=== PATIENT | female | born 1975 | race Caucasian/White ===

== ENCOUNTER 2017-06-02 13:10 | Day surgery (SDC) | payer OTHER ==
[2017-06-02] MEDS: NS 1,000 ML IV (13:42)
[2017-06-02] MEDS ORDERED: PROPOFOL 200 MG/20 ML VIAL As Ordered ×2 (13:58)
[2017-06-02] MEDS ORDERED: LIDOCAINE 2% INJ 100 MG/5 ML SYRINGE As Ordered (13:58)
== END 2017-06-02 14:54 | disposition home or self-care (01) ==
LOC: M OPP 13:10
DX: R19.4 Change in bowel habit (principal); K29.70 Gastritis, unspecified, without bleeding; R10.13 Epigastric pain; R14.0 Abdominal distension (gaseous); K44.9 Diaphragmatic hernia without obstruction or gangrene; K21.9 Gastro-esophageal reflux disease without esophagitis; R51 Headache; F41.9 Anxiety disorder, unspecified; Z79.82 Long term (current) use of aspirin; Z79.899 Other long term (current) drug therapy; Z88.5 Allergy status to narcotic agent; F17.210 Nicotine dependence, cigarettes, uncomplicated; Z86.73 Personal history of transient ischemic attack (TIA), and cerebral infarction without residual deficits; Z98.51 Tubal ligation status; Z80.3 Family history of malignant neoplasm of breast
CPT/HCPCS: 45378

== ENCOUNTER → 2017-07-25 | Outpatient (REF) | payer OTHER ==
[2017-07-25 17:03] LABS: ALBUMIN 4.2 GM/DL (3.2-5.2); ALBUMIN/GLOBULIN RATIO 1.45 (1.00-1.93); ALKALINE PHOSPHATASE 70 U/L (45-117); ALT/SGPT 14 U/L (12-78); ANION GAP 11 MEQ/L (8-16); AST/SGOT 10 U/L (7-37); BILIRUBIN,TOTAL 0.3 MG/DL (0.2-1.0); BLOOD UREA NITROGEN 17 MG/DL (7-18); CARBON DIOXIDE LEVEL 22 MEQ/L (21-32); CHLORIDE LEVEL 109 MEQ/L (98-107); CREATININE FOR GFR 0.83 MG/DL (0.55-1.30); GLOMERULAR FILTRATION RATE > 60.0 (>58); GLUCOSE, FASTING 91 MG/DL (70-100); POTASSIUM SERUM 3.8 MEQ/L (3.5-5.1); SODIUM LEVEL 142 MEQ/L (136-145); TOTAL PROTEIN 7.1 GM/DL (6.4-8.2)
[2017-07-25 18:15] LABS: BASO % 0.5 % (0.0-1.0); EOS # 0.1 10^3/uL (0.0-0.50); EOS % 1.6 % (0.0-3.0); HEMATOCRIT 40.1 % (36.0-47.0); HEMOGLOBIN 13.5 g/dl (12.0-16.0); IMMATURE GRANULOCYTE % 0.4 % (0-3.0); LYMPH % 26.9 % (24.0-44.0); MEAN CORPUSCULAR HEMOGLOBIN 29.9 pg (27.0-33.0); MEAN CORPUSCULAR HGB CONC 33.7 g/dl (32.0-36.5); MEAN CORPUSCULAR VOLUME 88.7 fl (80.0-96.0); MONO # 0.5 10^3/uL (0.0-0.8); NEUTROPHILS # 4.7 10^3/uL (1.8-7.7); NEUTROPHILS % 63.6 % (36.0-66.0); PLATELET COUNT, AUTOMATED 240 10^3/uL (150-450); RED BLOOD COUNT 4.52 10^6/uL (4.00-5.40); RED CELL DISTRIBUTION WIDTH 12.8 % (11.5-14.5); WHITE BLOOD COUNT 7.4 10^3/uL (4.0-10.0)
[2017-07-28 15:19] LABS: ZONISAMIDE LEVEL 10.2 ug/mL (10.0-40.0)
== END ==
LOC: M LABNEURO 15:30
DX: R51 Headache (principal); Z79.899 Other long term (current) drug therapy
CPT/HCPCS: 80053

== ENCOUNTER 2018-05-21 16:17 | Inpatient (IN) | payer OTHER ==
[~2018-05-21] VITALS: Ht 167.6 cm; Wt 63.4 kg
[~2018-05-21 16:17] MED LIST: ASPI81TAEC PO; ATOR1TAB21 PO; EFFE75CA2 PO; GLYC2TAB18 PO; RANI150T PO; VITA100067 PO; ZONI100C2; ZONI25CA2 PO
[2018-05-21 20:45] VITALS: BP 123/72
[2018-05-21] MEDS ORDERED: ZONI100C2 PO (21:03)
[2018-05-21] MEDS ORDERED: GLYC1TAB18 PO (21:03)
[2018-05-21] MEDS ORDERED: ZOFR8TAB22 PO (21:05)
[2018-05-21] MEDS ORDERED: PERC5TAB12 PO (21:05)
--- NOTE | 2018-05-21 21:18 | HPEPDOC ---
General Date of Admission May 21, 2018 at 20:31 Chief Complaint The patient is a 43-year-old female admitted with a reason for visit of choledocholithiasis. Source: Patient Exam Limitations: No limitations Severity: Moderate History of Present Illness This is a 43-year-old female with a pertinent past medical history of OCD and right temporal parietal hemorrhagic stroke in 2015 who is complaining of right upper quadrant pain. The patient was a direct admission from [facility] for an ERCP for choledocholithiasis. She states that she was previously seen at the [place] ER on 05/14 where she was found to have cholelithiasis with a dilated CBD of 8 mm was noted and elevated liver enzymes. She was then directly admitted from the [place] surgery clinic on 05/18/2017 with the diagnosis of cholecystitis. She was started on IV antibiotics. On the she had an MRCP done which showed common bile duct stones and stones in the ampulla she was then transferred to [facility] for ERCP. Pain description Duration: couple months worsened on New Year's Jada Associated symptoms: nausea + nonbloody bilious vomiting (6 episodes on New Year's Jada) + constipation Denies blood in stool or urine or diarrhea. Denies any skin breakdown or any abdominal lesions. Rates: 10 out of 10 which is now constant, localized and sharp in nature. Has used oxycodone to provide some pain relief but made her nauseous. Home Medications Scheduled Glycopyrrolate Base (Glycopyrrolate) 1 Mg Tab, 2 MG PO DAILY, (Reported) Zonisamide (Zonisamide) 100 Mg Cap, 300 MG PO QHS, (Reported) Scheduled PRN Ondansetron (Zofran Odt) 8 Mg Tab, 8 MG PO TID PRN for NAUSEA, (Reported) Oxycodone/Acetaminophen (Percocet 5-325 mg) 1 Tab Tab, 1 TAB PO Q4H PRN for PAIN, (Reported) Allergies Coded Allergies: Codeine (Verified Adverse Reaction, Intermediate, SEVERE N/V COULDN'T WALK DIZZY, 05/21/18) Past Medical History Medical History 1. Obsessive-compulsive disorder 2. Hx of right temporal parietal Hemorrhagic Stroke 02/2016 3. Surgical History 1. Tubal Ligation. Family History Mother - migraines () Family history of gallbladder removal in all females (unsure why) Social History * Smoker: current smoker (the last 30 years 1 pack a day) Alcohol: Denies Drugs: denies Review of Systems Constitutional: Denies: Chills, Fever Skin: Denies: Rash, Lesions, Jaundice, Breakdown Pulmonary: Denies: Dyspnea, Cough Cardiovascular: Denies: Chest Pain, Palpitations, Orthopnea, Paroxysmal Noc. Dyspnea, Lt Headedness Gastrointestinal: Reports: Nausea, Vomiting, Abdominal Pain (right upper quadrant pain), Constipation; Denies: Diarrhea Genitourinary: Denies: Dysuria, Frequency, Incontinence, Hematuria, Retention Hematologic: Denies: Bruising, Bleeding Excessively Musculoskeletal: Denies: Neck Pain, Back Pain, Joint Pain, Muscle Pain, Spasms Neurological: Denies: Weakness, Numbness, Change in speech, Confusion Psych: Reports: Mood Normal; Denies: Depression, Memory Issues Physical Examination General Exam: Positive: Alert, No Acute Distress Eye Exam: Negative: Sclera icteric ENT Exam: Positive: Atraumatic, Mucous membr. moist/pink, Pharynx Normal Neck Exam: Positive: Supple; Negative: JVD, thyromegaly Chest Exam: Positive: Clear to auscultation, Normal air movement Heart Exam: Positive: Rate Normal, Regular Rhythm, Normal S1, Normal S2; Negative: Murmurs, Rubs Telemetry: Positive: No significant arrhythmia Abdomen Exam: Positive: BS Hypoactive, Soft, Tenderness (right upper and middle quadrant.), Other (right upper and middle quadrant guarding. positive Marie signs.); Negative: Normal bowel sounds Extremity Exam: Positive: Normal pulses; Negative: Clubbing, Cyanosis, Edema Skin Exam: Positive: Nl turgor and temperature; Negative: Breakdown, Lesion Neuro Exam: Positive: Normal Speech Psych Exam: Positive: Mental status NL, Mood NL, Oriented x 3 Vital Signs Vital Sign - Last 24 Hours 05/21/18 20:45 Temp 98.1 Pulse 56 Resp 18 B/P (MAP) 123/72 (89) Pulse Ox 97 O2 Delivery Room Air Assessment/Plan 43-year-old female with a pertinent past medical history of OCD, partial hemorrhagic stroke in 2016 who was a direct admission from [facility] for choledocholithiasis. The patient me management the following problems: 1. Right upper quadrant pain secondary to choledocholithiasis. -hysical exam today positive for Mercy signs negative for jaundice -Labs: Otology and chemistries were unremarkable. Total bilirubin was 0.1, liver enzymes up-trended AST-42 and ALT-76. Lipase was within normal limits : 14 -Imaging: Chest x-ray was negative for any acute processes. 05/14/18 U/S gallbladder was positive for cholelithiasis with common duct dilatation of 8 mm. 05/18/17 CT scan of the abdomen showed mild gallbladder wall thickening and pericholecystic fluids. -All labs imaging an EKG done cartilage can be found in chart -Diet nothing by mouth. -IV fluids 75 MLS per hour. -Pain management Tylenol, Percocet, morphine -Dr. Omalley/GI was consulted - will need to call to confirm when ERCP is scheduled , possibly Monday the . -once stable after 6 weeks should consider possible cholecystectomy outpatient. 2. History of hemorrhagic stroke. Will continue with her outpatient zonisamide. 3. History of OCD - currently not on any SSRIs or SNRI. Stable 4. DVT prophylaxis - heparin every 6 hours 5.Diet: Nothing by mouth Disposition the patient will be admitted to Dr. Jean service transition of care will occur 05/22/2018 at 7 AM. Plan / VTE VTE Prophylaxis Ordered?: Yes GME ATTESTATION GME ATTESTATION My faculty preceptor for this patient encounter was physically present during the encounter and was fully available. All aspects of the patient interview, examination, medical decision making process, and medical care plan development were reviewed and approved by the faculty preceptor. The faculty preceptor is aware and concurs with the plan as stated in the body of this note and will attest to such by his/her cosignature. JAYE MEZA DO May 21, 2018 21:18
[2018-05-21] MEDS ORDERED: ACETAMINOPHEN TAB 650MG DOSE (2X325MG) PO PRN (23:15)
[2018-05-21] MEDS ORDERED: ONDANSETRON 4MG/2ML VIAL (J2405) IV PRN (23:15)
[2018-05-21] MEDS ORDERED: PERCOCET 5MG/325MG TAB PO PRN (23:15)
[2018-05-21] MEDS ORDERED: BISACODYL 5 MG TAB PO PRN (23:15)
[2018-05-21] MEDS: NS 1,000 ML IV SCH (23:54)
[2018-05-21] MEDS: MORPHINE 4 MG/ML 1ML VIAL/SYRINGE (J2270) IV PRN (23:54)
[2018-05-21] MEDS: ZONISAMIDE 100 MG CAP (ZONEGRAN) PO SCH (23:54)
[2018-05-22 00:09] LABS: HEMATOCRIT 35.3 % (36.0-47.0); HEMOGLOBIN 11.8 g/dl (12.0-15.5); MEAN CORPUSCULAR HEMOGLOBIN 30.8 pg (27.0-33.0); MEAN CORPUSCULAR HGB CONC 33.4 g/dl (32.0-36.5); MEAN CORPUSCULAR VOLUME 92.2 fl (80.0-96.0); PLATELET COUNT, AUTOMATED 200 10^3/uL (150-450); RED BLOOD COUNT 3.83 10^6/uL (4.00-5.40); WHITE BLOOD COUNT 5.2 10^3/uL (4.0-10.0)
[2018-05-22 00:13] LABS: INR 1.1; PROTHROMBIN TIME 14.3 SECONDS (12.1-14.4)
[2018-05-22 00:36] LABS: ALBUMIN 3.4 GM/DL (3.2-5.2); ALT/SGPT 62 U/L (12-78); BILIRUBIN,TOTAL 0.2 MG/DL (0.2-1.0); BLOOD UREA NITROGEN 12 MG/DL (7-18); CALCIUM LEVEL 8.4 MG/DL (8.5-10.1); CARBON DIOXIDE LEVEL 20 MEQ/L (21-32); CHLORIDE LEVEL 110 MEQ/L (98-107); CHOLESTEROL LEVEL 188 MG/DL (<200); CHOLESTEROL RISK RATIO 4.585 (<5); CREATININE FOR GFR 0.73 MG/DL (0.55-1.30); GLOMERULAR FILTRATION RATE > 60.0 (>58); GLUCOSE, FASTING 87 MG/DL (70-100); HDL CHOLESTEROL 41 MG/DL (>40); LDL CHOLESTEROL 131 MG/DL (<100); NON-HDL-C 147 MG/DL; POTASSIUM SERUM 3.7 MEQ/L (3.5-5.1); SODIUM LEVEL 141 MEQ/L (136-145); TOTAL PROTEIN 5.8 GM/DL (6.4-8.2); TRIGLYCERIDES LEVEL 82 MG/DL (<150)
[2018-05-22] MEDS: HEPARIN SOD (PORCINE) 5000 UNITS/ML VIAL SC SCH ×3 (05:42→21:33)
[2018-05-22 06:00] VITALS: BP 100/59
[2018-05-22 07:08] LABS: HEMATOCRIT 35.4 % (36.0-47.0); HEMOGLOBIN 11.9 g/dl (12.0-15.5); MEAN CORPUSCULAR HEMOGLOBIN 31.1 pg (27.0-33.0); MEAN CORPUSCULAR HGB CONC 33.6 g/dl (32.0-36.5); MEAN CORPUSCULAR VOLUME 92.4 fl (80.0-96.0); PLATELET COUNT, AUTOMATED 193 10^3/uL (150-450); RED BLOOD COUNT 3.83 10^6/uL (4.00-5.40); WHITE BLOOD COUNT 4.3 10^3/uL (4.0-10.0)
[2018-05-22 07:40] LABS: ALBUMIN 3.3 GM/DL (3.2-5.2); ALT/SGPT 56 U/L (12-78); BILIRUBIN,TOTAL 0.2 MG/DL (0.2-1.0); BLOOD UREA NITROGEN 13 MG/DL (7-18); CALCIUM LEVEL 8.6 MG/DL (8.5-10.1); CARBON DIOXIDE LEVEL 22 MEQ/L (21-32); CHLORIDE LEVEL 110 MEQ/L (98-107); CREATININE FOR GFR 0.68 MG/DL (0.55-1.30); GLOMERULAR FILTRATION RATE > 60.0 (>58); GLUCOSE, FASTING 84 MG/DL (70-100); POTASSIUM SERUM 3.8 MEQ/L (3.5-5.1); SODIUM LEVEL 139 MEQ/L (136-145); TOTAL PROTEIN 5.9 GM/DL (6.4-8.2)
--- NOTE | 2018-05-22 07:50 | IPNPDOC ---
Date Seen The patient was seen on 05/22/18. Progress Note SUBJECTIVE: Denies: Chills, Fever Denies: Rash, Lesions, Jaundice, Breakdown Denies: Dyspnea, Cough Denies: Chest Pain, Palpitations, Orthopnea, Paroxysmal Noc. Dyspnea, Lt Headedness Reports: Nausea, Vomiting, colicky Abdominal Pain (right upper quadrant pain) across abd and to back between shoulder blades, Constipation; Denies: DiarrheaDenies: Dysuria, Frequency, Incontinence, Hematuria, Retention Denies: Bruising, Bleeding Excessively Denies: Neck Pain, Back Pain, Joint Pain, MusclePain, SpasmsDenies: Weakness, Numbness, Change in speech, Confusion Reports: Mood Normal; Denies: Depression, Memory Issues OBJECTIVE: VITALS: PLS SEE BELOW General Exam: Positive: Alert, No Acute Distress Eye Exam: Negative: Sclera icteric ENT Exam: Positive: Atraumatic, Mucous membr. moist/pink, Pharynx Normal Neck Exam: Positive: Supple; Negative: JVD, thyromegaly Chest Exam: Positive: Clear to auscultation, Normal air movement Heart Exam: Positive: Rate Normal, Regular Rhythm, Normal S1, Normal S2; Negative: Murmurs, Rubs Telemetry: Positive: No significant arrhythmia Abdomen Exam: Positive: BS Hypoactive, Soft, Tenderness (right upper and middle quadrant.), Other (right upper and middle quadrant guarding. positive Marie signs.); Negative: Normal bowel sounds Extremity Exam: Positive: Normal pulses; Negative: Clubbing, Cyanosis, Edema Skin Exam: Positive: Nl turgor and temperature; Negative: Breakdown, Lesion Neuro Exam: Positive: Normal Speech Psych Exam: Positive: Mental status NL, Mood NL, Oriented x 3 LABORATORY DATA, IMAGING STUDIES: PLS SEE BELOW ASSESSMENT AND PLAN: This is a 43-year-old female with a pertinent past medical history of OCD and right temporal parietal hemorrhagic stroke in 2016 who is complaining of right upper quadrant pain. The patient was a direct admission from [facility] for an ERCP for choledocholithiasis. She states that she was previously seen at the [place] ER on 05/14 where she was found to have cholelithiasis with a dilated CBD of 8 mm was noted and elevated liver enzymes. She was then directly admitted from the [place] surgery clinic on 05/18/2017 with the diagnosis of cholecystitis. She was started on IV antibiotics. On the seventh she had an MRCP done which showed common bile duct stones and stones in the ampulla she was then transferred to [facility] for ERCP. 1. Right upper quadrant pain secondary to choledocholithiasis. -physical exam today positive for Mercy signs negative for jaundice -Labs: chemistries were unremarkable. Total bilirubin was 0.1, liver enzymes up -trended AST-42 and ALT-76. Lipase was within normal limits : 14 -Imaging: Chest x-ray was negative for any acute processes. 05/14/18 U/S gallbladder was positive for cholelithiasis with common duct dilatation of 8 mm. 05/18/17 CT scan of the abdomen showed mild gallbladder wall thickening and pericholecystic fluids. -All labs imaging an EKG done cartilage can be found in chart -Diet nothing by mouth. -IV fluids 75 MLS per hour. -Pain management Tylenol, Percocet, morphine -Dr. Omalley/GI was consulted - will need to call to confirm when ERCP is scheduled , possibly Monday the . -once stable after 6 weeks should consider possible cholecystectomy outpatient. 2. History of hemorrhagic stroke. Will continue with her outpatient zonisamide. 3. History of OCD - currently not on any SSRIs or SNRI. Stable 4. DVT prophylaxis - heparin every 6 hours 5.Diet: Nothing by mouth VS, I&O, 24H, Fishbone Vital Signs/I&O Vital Signs Date Time Temp Pulse Resp B/P (MAP) Pulse Ox O2 Delivery O2 Flow Rate FiO2 05/22/18 06:00 98.8 59 18 100/59 (73) 98 Room Air I&O- Last 24 Hours up to 6 AM 05/22/18 06:00 Intake Total 90 ml Output Total 350 ml Balance -260 ml Laboratory Data 24H LABS Laboratory Tests 2 05/21/18 23:45: Nucleated Red Blood Cells % (auto) 0.0, Prothrombin Time 14.3, Prothromb Time International Ratio 1.10, Anion Gap 11, Glomerular Filtration Rate > 60.0, Blood Urea Nitrogen 12, Creatinine 0.73, Sodium Level 141, Potassium Level 3.7, Chloride Level 110H, Carbon Dioxide Level 20L, Calcium Level 8.4L, Aspartate Amino Transf (AST/SGOT) 17, Alanine Aminotransferase (ALT/SGPT) 62, Alkaline Phosphatase 179H, Total Bilirubin 0.2, Triglycerides Level 82, LDL Cholesterol 131H, Total Protein 5.8L, Albumin 3.4, Albumin/Globulin Ratio 1.42, Total Cholesterol 188, Non-HDL Cholesterol (LDL + VLDL) 147, Total HDL Cholesterol 41, Cholesterol/HDL Ratio 4.585 CBC/BMP Laboratory Tests 05/21/18 23:45 Red Blood Count 3.83 L, Mean Corpuscular Volume 92.2, Mean Corpuscular Hemoglobin 30.8, Mean Corpuscular Hemoglobin Concent 33.4, Red Cell Distribution Width 12.5, Calcium Level 8.4 L, Aspartate Amino Transf (AST/SGOT) 17, Alanine Aminotransferase (ALT/SGPT) 62, Alkaline Phosphatase 179 H, Total Bilirubin 0.2, Triglycerides Level 82, LDL Cholesterol 131 H, Total Protein 5.8 L, Albumin 3.4 THOMAS CARRINGTON MD May 22, 2018 07:01
[2018-05-22] MEDS: NORCO, ANEXSIA 5/325MG TABLET (HYDROcodone/ACETAMINOPHEN) PO PRN ×3 (09:00→19:57)
[2018-05-22 10:44] LABS: LIPASE 114 U/L (73-393)
[2018-05-22] MEDS: NS 1,000 ML IV SCH (12:27)
--- NOTE | 2018-05-22 13:25 | REP ---
MRCP exam: Without contrast: History: Choledocholithiasis. No comparison imaging available. Technique: Axial and coronal T2-weighted scans are acquired. In addition, MRCP acquisition is acquired and maximal intensity projection images are generated and displayed rotational. Findings: There are multiple large faceted gallstones filling much of the lumen of the gallbladder. These range in size up to 1.6 cm. No small gallstones are seen in the gallbladder. There is no evidence of intrahepatic biliary ductal dilation. Pancreatic duct is borderline. The common bile duct measures 1.1 cm in greatest diameter. There is no MRCP evidence of choledocholithiasis. No mass lesion is apparent. The study is otherwise unremarkable. Impression: Multiple large gallstones in the gallbladder. Mildly dilated common bile duct, 1.1 cm. No MRCP evidence of choledocholithiasis. Electronically Signed by Jose Lee MD 05/22/2018 01:51 P
[2018-05-22 15:30] VITALS: BP 127/68
[2018-05-22] MEDS: ZONISAMIDE 100 MG CAP (ZONEGRAN) PO SCH (19:57)
[2018-05-22] MEDS: MORPHINE 4 MG/ML 1ML VIAL/SYRINGE (J2270) IV PRN (21:38)
[2018-05-22 22:00] VITALS: BP 136/67
[2018-05-23] MEDS: NS 1,000 ML IV SCH (03:01)
[2018-05-23 06:00] VITALS: BP 112/67
[2018-05-23] MEDS: HEPARIN SOD (PORCINE) 5000 UNITS/ML VIAL SC SCH (06:09)
[2018-05-23] MEDS: NORCO, ANEXSIA 5/325MG TABLET (HYDROcodone/ACETAMINOPHEN) PO PRN (06:16)
[2018-05-23] MEDS ORDERED: MORP4INJ5 IV (06:42)
[2018-05-23] MEDS ORDERED: ONDA4VLL IV (06:42)
[2018-05-23 06:50] LABS: HEMATOCRIT 34.6 % (36.0-47.0); HEMOGLOBIN 11.7 g/dl (12.0-15.5); MEAN CORPUSCULAR HGB CONC 33.8 g/dl (32.0-36.5); MEAN CORPUSCULAR VOLUME 91.8 fl (80.0-96.0); PLATELET COUNT, AUTOMATED 199 10^3/uL (150-450); RED BLOOD COUNT 3.77 10^6/uL (4.00-5.40); WHITE BLOOD COUNT 3.9 10^3/uL (4.0-10.0)
[2018-05-23 07:20] LABS: ALBUMIN 3.3 GM/DL (3.2-5.2); ALT/SGPT 43 U/L (12-78); BILIRUBIN,TOTAL 0.2 MG/DL (0.2-1.0); BLOOD UREA NITROGEN 14 MG/DL (7-18); CALCIUM LEVEL 8.4 MG/DL (8.5-10.1); CARBON DIOXIDE LEVEL 21 MEQ/L (21-32); CHLORIDE LEVEL 110 MEQ/L (98-107); GLOMERULAR FILTRATION RATE > 60.0 (>58); GLUCOSE, FASTING 87 MG/DL (70-100); POTASSIUM SERUM 3.8 MEQ/L (3.5-5.1); SODIUM LEVEL 140 MEQ/L (136-145); TOTAL PROTEIN 5.8 GM/DL (6.4-8.2)
[2018-05-23] MEDS: MORPHINE 4 MG/ML 1ML VIAL/SYRINGE (J2270) IV PRN (07:37)
--- NOTE | 2018-05-23 12:39 | DS.PDOC ---
Discharge Summary General Date of Admission May 21, 2018 at 20:31 Date of Discharge 05/23/18 LEFT AGAINST MEDICAL ADVICE DUE TO INSURANCE NOT PAYING FOR AMBULANCE. PATIENT REFUSING TO PAY FOR AMBULANCE FOR TRANSFER TO [facility] FOR CHOLECYSTECTOMY. PATIENT REFUSING GENERAL SURGICAL SERVICES AT [facility]. Discharge Summary CONSULTANTS: GI-DR ROMA OMALLEY IMAGING STUDIES: 05/22/18 repeat MRCP no choledocholithiasis . multiple gallstones. DISCHARGE DIAGNOSES: Choledocholithiasis Biliary colic History of right temporal parietal hemorrhagic stroke in 2016 OCD HISTORY OF PRESENT ILLNESS: This is a 43-year-old female with a pertinent past medical history of OCD and right temporal parietal hemorrhagic stroke in 2016 who is complaining of right upper quadrant pain. The patient was a direct admission from [facility] for an ERCP for choledocholithiasis. She states that she was previously seen at the [place] ER on 05/14 where she was found to have cholelit hiasis with a dilated CBD of 8 mm was noted and elevated liver enzymes. She was then directly admitted from the [place] surgery clinic on 05/18/2017 with the diagnosis of cholecystitis. She was started on IV antibiotics. On the seventh she had an MRCP done which showed common bile duct stones and stones in the ampulla she was then transferred to [facility] for ERCP. HOSPITAL COURSE: Patient was admitted for biliary colic and choledocholithiasis. -physical exam on admission was positive for Marie's sign, but negative for jaundice -Labs: chemistries were unremarkable. Total bilirubin was 0.1, liver enzymes up-trended AST-42 and ALT-76. Lipase was within normal limits : 14 -Imaging: Chest x-ray was negative for any acute processes. 05/14/18 U/S gallbladder was positive for cholelithiasis with common duct dilatation of 8 mm. 05/18/17 CT scan of the abdomen showed mild gallbladder wall thickening and pericholecystic fluids. -All labs imaging an EKG done cartilage can be found in chart -Diet nothing by mouth. -s/pIV fluids 75 MLS per hour. -Pain management Tylenol, Percocet, morphine -Dr. Omalley/GI was consulted -recommended repeating MRCP since pt had normal bili and afebrile with no white count. -repeat MRCP on 05/22/18: no choledocholithiasis. GI recommended surgical consult for lap erica. pt refused [facility] surgical services, and opted to return to [facility] Dr. Aragon accepted , but pt refused to pay ambulance due to insurance denial. Pt signed out AMA despite risk of infection, obstructive jaundice, sepsis, and . History of hemorrhagic stroke. Will continue with her outpatient zonisamide. History of OCD - currently not on any SSRIs or SNRI. Stable DVT prophylaxis - heparin every 6 hours Diet: Nothing by mouth DISCHARGE MEDICATIONS: Please see below. ALLERGIES: Please see below. PHYSICAL EXAMINATION ON DISCHARGE: VITAL SIGNS: Please see below. General Exam: Positive: Alert, No Acute Distress Eye Exam: Negative: Sclera icteric ENT Exam: Positive: Atraumatic, Mucous membr. moist/pink, Pharynx Normal Neck Exam: Positive: Supple; Negative: JVD, thyromegaly Chest Exam: Positive: Clear to auscultation, Normal air movement Heart Exam: Positive: Rate Normal, Regular Rhythm, Normal S1, Normal S2; Negative: Murmurs, Rubs Telemetry: Positive: No significant arrhythmia Abdomen Exam: Positive: BS Hypoactive, Soft, Tenderness (right upper and middle quadrant.), Other (right upper and middle quadrant guarding. positive Marie signs.); Negative: Normal bowel sounds Extremity Exam: Positive: Normal pulses; Negative: Clubbing, Cyanosis, Edema Skin Exam: Positive: Nl turgor and temperature; Negative: Breakdown, Lesion Neuro Exam: Positive: Normal Speech Psych Exam: Positive: Mental status NL, Mood NL, Oriented x 3 LABORATORY DATA: Please see below. IMAGING STUDIES: MRCP 05/22/18 MRCP exam: Without contrast: History: Choledocholithiasis. No comparison imaging available. Technique: Axial and coronal T2-weighted scans are acquired. In addition, MRCP acquisition is acquired and maximal intensity projection images are generated and displayed rotational. Findings: There are multiple large faceted gallstones filling much of the lumen of the gallbladder. These range in size up to 1.6 cm. No small gallstones are seen in the gallbladder. There is no evidence of intrahepatic biliary ductal dilation. Pancreatic duct is borderline. The common bile duct measures 1.1 cm in greatest diameter. There is no MRCP evidence of choledocholithiasis. No mass lesion is apparent. The study is otherwise unremarkable. Impression: Multiple large gallstones in the gallbladder. Mildly dilated common bile duct, 1.1 cm. No MRCP evidence of choledocholithiasis. DISCHARGE INSTRUCTIONS: Immediate follow up with Dr. Aragon at [facility] ITEMS TO FOLLOWUP ON ON OUTPATIENT: NISHI ARAGON AT [facility] DISCHARGE CONDITION: guarded/ LEFT AGAINST MEDICAL ADVICE DUE TO FINANCIAL/INSURANCE ISSUES. TIME SPENT ON DISCHARGE: 30 minutes. Vital Signs/I&Os Vital Signs Date Time Temp Pulse Resp B/P (MAP) Pulse Ox O2 Delivery O2 Flow Rate FiO2 05/23/18 07:47 20 05/23/18 06:00 97.9 55 112/67 (82) 98 Room Air I&O- Last 24 Hours up to 6 AM 05/23/18 05:59 Intake Total 825 ml Output Total 200 ml Balance 625 ml Laboratory Data Labs 24H Laboratory Tests 2 05/23/18 06:35: Nucleated Red Blood Cells % (auto) 0.0, Anion Gap 9, Glomerular Filtration Rate > 60.0, Blood Urea Nitrogen 14, Creatinine 0.70, Sodium Level 140, Potassium Level 3.8, Chloride Level 110H, Carbon Dioxide Level 21, Calcium Level 8.4L, Aspartate Amino Transf (AST/SGOT) 14, Alanine Aminotransferase (ALT/SGPT) 43, Alkaline Phosphatase 151H, Total Bilirubin 0.2, Total Protein 5.8L, Albumin 3.3, Albumin/Globulin Ratio 1.32 CBC/BMP Laboratory Tests 05/23/18 06:35 Red Blood Count 3.77 L, Mean Corpuscular Volume 91.8, Mean Corpuscular Hemoglobin 31.0, Mean Corpuscular Hemoglobin Concent 33.8, Red Cell Distribution Width 12.5, Calcium Level 8.4 L, Aspartate Amino Transf (AST/SGOT) 14, Alanine Aminotransferase (ALT/SGPT) 43, Alkaline Phosphatase 151 H, Total Bilirubin 0.2, Total Protein 5.8 L, Albumin 3.3 Discharge Medications Scheduled Zonisamide (Zonisamide) 100 Mg Cap, 300 MG PO QHS, (Reported) Scheduled PRN Morphine Sulfate (Morphine Sulfate INJ) 4 Mg/Ml Inj, 2 MG IV Q2HP PRN for SEVERE PAIN (PS 8-10) Ondansetron (Ondansetron HCl) 4 Mg/2 Ml Inj, 4 MG IV Q6HP PRN for NAUSEA OR VOMITING Allergies Coded Allergies: Codeine (Verified Adverse Reaction, Intermediate, SEVERE N/V COULDN'T WALK DIZZY, 05/21/18) THOMAS CARRINGTON MD May 23, 2018 12:05
--- NOTE | 2018-05-23 20:59 | CR ---
DATE OF CONSULTATION: 05/22/2018 This is a 43-year white female who was again transferred down from [facility] for a possibility of choledocholithiasis. The patient apparently had a right temporoparietal hemorrhagic stroke in 2015, began complaining of right upper quadrant pain. She was transferred from [facility] for a possibility of choledocholithiasis. She was found to have cholelithiasis with apparent dilated common bile duct and possible stone at the distal duct based on magnetic resonance cholangiopancreatography (MRCP). She was admitted for possible endoscopic retrograde cholangiopancreatography (ERCP) and further evaluation. The patient describes having increasing symptoms of pain since New Years. She has some nausea, occasional vomiting. She had apparently six episodes on New Years. She has no melena or hematochezia or bright red blood per rectum. The patient has a fairly constant pain of 10/. ALLERGIES: To CODEINE. PAST MEDICAL HISTORY: 1. Obsessive-compulsive disorder. 2. History of right temporoparietal hemorrhagic stroke in 02/2016. PAST SURGICAL HISTORY: Status post tubal ligation. FAMILY HISTORY: Family history is noncontributory. SOCIAL HISTORY: Cigarettes. The patient smokes 1 pack a day for the last 30 years. Alcohol occasionally. REVIEW OF SYSTEMS: A 12-point review of systems is noncontributory to the above problems. PHYSICAL EXAMINATION: GENERAL: This is a well-developed, well-nourished white female in no obvious acute distress. Appears stated age. CHEST: Chest was clear to auscultation. CARDIOVASCULAR: Cardiovascular exam showed a regular rhythm. ABDOMEN: Soft, mild right upper quadrant tenderness. No hepatosplenomegaly. Bowel sounds positive. LABORATORY STUDIES: Laboratory studies on admission shows a white count of 5200, hemoglobin and hematocrit (H and H) 11.8 and 35.3. The patient's white count on 05/22/2018 showed 4300, H and H 11.9 and 35.4. The patient's chemistry twice on 05/21/2018 and 05/22/2018 showed a total bilirubin of 0.2. AST was 17, ALT was 62 on the 05/21/2018 and then 15 and 56 on 05/22/2018. The patient's alkaline phosphatase was 179 on admission and now it is 160. The patient's lipase was 114. We ordered a repeat imaging of the abdomen on 05/22/2018. Repeated the MRCP which was read by Dr. Lee. The report showed multiple large faceted gallstones filling much of the lumen of the gallbladder 1.6 cm in size. No small gallstones were seen in the gallbladder. There is no evidence of intrahepatic biliary dilatation. The common bile duct was measured at 1.1 cm in various diameter. There was no MRCP evidence of choledocholithiasis. No mass lesions seen. ANALYSIS: Abdominal pain secondary to gallstones. At the present time we have no liver function elevations or imaging studies here to suggest there is choledocholithiasis to proceed with possible endoscopic retrograde cholangiopancreatography (ERCP). Our plan will be to transfer the patient back [facility] for a possibility of a laparoscopic cholecystectomy and if anything changes in the interim endoscopic retrograde cholangiopancreatography (ERCP) certainly could be considered in the future but at this point we have no laboratory studies or imaging studies to suggest that she has a common bile duct stone at this time.
== END 2018-05-23 09:10 | disposition left against medical advice (07) | DRG 446 ==
LOC: M MS4PR 20:31
PROVIDERS: ADMIT Internal Medicine; ATTEND General Practice
DX: K80.00 Calculus of gallbladder with acute cholecystitis without obstruction (principal); F42.9 Obsessive-compulsive disorder, unspecified; F17.200 Nicotine dependence, unspecified, uncomplicated; Z86.73 Personal history of transient ischemic attack (TIA), and cerebral infarction without residual deficits; Z79.899 Other long term (current) drug therapy; Z88.5 Allergy status to narcotic agent

== ENCOUNTER → 2018-09-03 | Outpatient (CLI) | payer OTHER ==
[~2018-09-03] MED LIST changes: +GLYC1TAB18 PO; +MORP4INJ5 IV; +ONDA4VLL IV; +PERC5TAB12 PO; +ZOFR8TAB22 PO; +ZONI100C2 PO
--- NOTE | 2018-09-03 18:52 | REPMRS ---
Patient History The patient states she had a clinical breast exam in September 2017.Family history of breast cancer at age 50 in maternal aunt, breast cancer at age 50 in maternal aunt, breast cancer at age 50 in paternal aunt, colorectal cancer in maternal grandfather, pancreatic cancer in paternal grandfather, endometrial cancer in maternal aunt, prostate cancer in maternal grandfather. Digital Mammo Screening Bilat: September 03, 2018 - Exam #: [id number] Bilateral CC and MLO view(s) were taken. Technologist: Rubia Correia, Technologist Prior study comparison: July 16, 2015, bilateral digital mammo screening bilat, performed at [facility]. FINDINGS: The breast tissue is extremely dense which could obscure a lesion on mammography. There is no evidence of cancer on this mammogram. Assessment: BI-RADS/ACR category 2 mammogram. Benign Findings. Recommendation Routine screening mammogram of both breasts in 1 year (for women over age 40). This mammogram was interpreted with the aid of an FDA-approved computer-aided dectection system. Electronically Signed By: Ben Gallego MD 09/03/18 [id number]
== END ==
LOC: M RAD 15:45
PROVIDERS: ATTEND Internal Medicine
DX: Z12.31 Encounter for screening mammogram for malignant neoplasm of breast (principal)

== ENCOUNTER → 2018-09-25 | Outpatient (REF) | payer OTHER ==
[2018-09-25 18:07] LABS: BASO # 0.1 10^3/uL (0.0-0.2); BASO % 0.6 % (0.0-1.0); EOS # 0.1 10^3/uL (0.0-0.50); EOS % 0.8 % (0.0-3.0); HEMATOCRIT 42.4 % (36.0-47.0); HEMOGLOBIN 13.7 g/dl (12.0-15.5); LYMPH # 1.3 10^3/uL (1.5-4.5); LYMPH % 16.6 % (24.0-44.0); MEAN CORPUSCULAR HGB CONC 32.3 g/dl (32.0-36.5); MEAN CORPUSCULAR VOLUME 89.6 fl (80.0-96.0); MONO # 0.5 10^3/uL (0.0-0.8); MONO % 6.5 % (0.0-5.0); NEUTROPHILS # 5.8 10^3/uL (1.8-7.7); NEUTROPHILS % 75.2 % (36.0-66.0); PLATELET COUNT, AUTOMATED 243 10^3/uL (150-450); RED BLOOD COUNT 4.73 10^6/uL (4.00-5.40); WHITE BLOOD COUNT 7.7 10^3/uL (4.0-10.0)
[2018-09-25 18:14] LABS: ALBUMIN 4.1 GM/DL (3.2-5.2); ALT/SGPT 99 U/L (12-78); BILIRUBIN,TOTAL 0.3 MG/DL (0.2-1.0); BLOOD UREA NITROGEN 18 MG/DL (7-18); CALCIUM LEVEL 8.8 MG/DL (8.5-10.1); CARBON DIOXIDE LEVEL 23 MEQ/L (21-32); CHLORIDE LEVEL 109 MEQ/L (98-107); CREATININE FOR GFR 0.81 MG/DL (0.55-1.30); FOLATE 1.7 NG/ML; GLOMERULAR FILTRATION RATE > 60.0 (>58); GLUCOSE, FASTING 103 MG/DL (70-100); POTASSIUM SERUM 4.4 MEQ/L (3.5-5.1); RHEUMATOID FACTOR QUANT < 10.0 IU/ML (<15.0); SODIUM LEVEL 138 MEQ/L (136-145); TOTAL 25(OH) VITAMIN D 15.5 NG/ML (30.0-100.0); TOTAL PROTEIN 6.8 GM/DL (6.4-8.2); VITAMIN B12 LEVEL 784 PG/ML
[2018-09-25 18:42] LABS: HEMOGLOBIN A1c 5.6 %
[2018-09-25 20:23] LABS: ERYTHROCYTE SEDIMENTATION RATE 4 mm/hr (0-20)
[2018-10-01 00:06] LABS: ANTINUCLEAR ANTIBODIES DIRECT Negative (Negative); VITAMIN B1 LEVEL WHOLE BLOOD 100.3 nmol/L (66.5-200.0); VITAMIN E(ALPHA TOCOPHEROL) 10.8 mg/L (7.0-25.1); VITAMIN E(GAMMA TOCOPHEROL) 1.6 mg/L (0.5-5.5)
== END ==
LOC: M LABNEURO 12:09
PROVIDERS: ATTEND Psychiatry & Neurology Neurology
DX: G31.9 Degenerative disease of nervous system, unspecified (principal)

== ENCOUNTER → 2019-06-10 | Outpatient (CLI) | payer OTHER ==
[~2019-06-10] MED LIST changes: +ASPI81TA85 PO; +OMEP-218 PO; +ZONI100C17; +ZONI100C17 PO; -ZONI100C2; -ZONI100C2 PO; +ZONI25CA13 PO; -ZONI25CA2 PO
--- NOTE | 2019-06-13 00:51 | ECGEPIP ---
[facility] Test Date: 2019-06-10 Pat Name: JALYN JIMENEZ Department: Room: - Gender: Female Rn Radiation Oncology: ANGELA : 1975 Requested By: Tee Herr Order Number: [id number] Reading MD: Rishabh Robbins Measurements Intervals Thelma Rate: 58 P: 54 RI: 140 QRS: 34 QRSD: 89 T: 45 QT: 415 QTc: 411 Interpretive Statements SINUS BRADYCARDIA Poor R wave progression vs prior anterior wall infarct Compared to prior tracing in the system, no remarkable changes Electronically Signed on 06-13-2019 0:50:50 EST by Rishabh Robbins
== END ==
LOC: M EKG 12:51
PROVIDERS: ATTEND Anesthesiology
DX: Z01.818 Encounter for other preprocedural examination (principal)

== ENCOUNTER 2019-06-12 07:40 | Day surgery (SDC) | payer OTHER ==
[~2019-06-12] VITALS: Ht 167.6 cm; Wt 65.3 kg
[~2019-06-12 07:40] MED LIST changes: +ACETAMINOPHEN 650 MG SUPP PR ONE; +LR 1,000 ML IV ONE
[2019-06-12 08:11] LABS: HEMATOCRIT 45.9 % (36.0-47.0); HEMOGLOBIN 14.7 g/dl (12.0-15.5); MEAN CORPUSCULAR HEMOGLOBIN 28.4 pg (27.0-33.0); MEAN CORPUSCULAR VOLUME 88.8 fl (80.0-96.0); PLATELET COUNT, AUTOMATED 237 10^3/uL (150-450); RED BLOOD COUNT 5.17 10^6/uL (4.00-5.40); WHITE BLOOD COUNT 7.1 10^3/uL (4.0-10.0)
[2019-06-12] MEDS ORDERED: ROCURONIUM BROMIDE 50 MG/5 ML VIAL As Ordered ONE (08:22)
[2019-06-12] MEDS ORDERED: MIDAZOLAM INJ 2 MG/2 ML VIAL (J2250) As Ordered ONE (08:22)
[2019-06-12] MEDS ORDERED: fentaNYL 100 MCG/2 ML INJECTION (J3010) As Ordered ONE ×2 (08:22→10:14)
[2019-06-12] MEDS ORDERED: dexameTHASONE 4 MG/ML 1ML VIAL (J1100) As Ordered ONE (08:22)
[2019-06-12] MEDS ORDERED: LIDOCAINE 2% INJ 100 MG/5 ML SDV (FOR ANES.) As Ordered ONE (08:22)
[2019-06-12] MEDS ORDERED: ONDANSETRON 4MG/2ML VIAL (J2405) As Ordered ONE (08:22)
[2019-06-12] MEDS ORDERED: propofoL 200 MG/20 ML VIAL As Ordered ONE (08:23)
[2019-06-12 08:28] LABS: BLOOD UREA NITROGEN 19 MG/DL (7-18); CALCIUM LEVEL 9.1 MG/DL (8.5-10.1); CARBON DIOXIDE LEVEL 24 MEQ/L (21-32); CHLORIDE LEVEL 110 MEQ/L (98-107); CREATININE FOR GFR 0.92 MG/DL (0.55-1.30); GLOMERULAR FILTRATION RATE > 60.0 (>58); GLUCOSE, FASTING 98 MG/DL (70-100); POTASSIUM SERUM 4.1 MEQ/L (3.5-5.1); SODIUM LEVEL 140 MEQ/L (136-145)
[2019-06-12] MEDS ORDERED: ACETAMINOPHEN 650 MG SUPP As Ordered ONE (09:31)
[2019-06-12] MEDS ORDERED: BUPIVACAINE HCL 0.5% 10 ML VIAL As Ordered ONE (09:53)
[2019-06-12] MEDS ORDERED: KETOROLAC 60 MG/2 ML VIAL (J1885) As Ordered ONE (10:02)
[2019-06-12] MEDS ORDERED: SUGAMMADEX SODIUM 500 MG/5 ML VIAL (BRIDION) As Ordered ONE (10:02)
[2019-06-12] MEDS ORDERED: GLYCOPYRROLATE INJ 0.2 MG/ML 2 ML VIAL As Ordered ONE (10:13)
[2019-06-12] MEDS ORDERED: SEVOFLURANE INHAL SOLN 250 ML BTL As Ordered ONE (10:22)
[2019-06-12] MEDS ORDERED: DESFLURANE 240 ML INHALANT As Ordered ONE (10:22)
[2019-06-12] MEDS ORDERED: ONDANSETRON 4MG/2ML VIAL (J2405) IV PRN (11:00)
[2019-06-12] MEDS ORDERED: HYDROMORPHONE HCL 0.5 MG/ 0.5 ML SYRINGE (J1170 PER 1) IV PRN (11:00)
[2019-06-12] MEDS ORDERED: PERCOCET 5MG/325MG TAB PO PRN (11:00)
[2019-06-12] MEDS ORDERED: fentaNYL 100 MCG/2 ML INJECTION (J3010) IV PRN (11:00)
[2019-06-12 11:25] VITALS: BP 125/72
[2019-06-12] MEDS ORDERED: KETOROLAC 30 MG/ML VIAL (J1885) IV PRN (16:30)
== END 2019-06-12 11:52 | disposition home or self-care (01) ==
LOC: M SDC 07:40
PROVIDERS: ATTEND Obstetrics & Gynecology
DX: N92.6 Irregular menstruation, unspecified (principal); N88.2 Stricture and stenosis of cervix uteri; K21.9 Gastro-esophageal reflux disease without esophagitis; F41.9 Anxiety disorder, unspecified; Z86.73 Personal history of transient ischemic attack (TIA), and cerebral infarction without residual deficits; Z79.82 Long term (current) use of aspirin; Z79.899 Other long term (current) drug therapy; Z88.5 Allergy status to narcotic agent
CPT/HCPCS: 36415; 49320; 58563; 80048; 85027; 86850; 86900; 86901; 88305; J1100; J1885; J2250; J2405; J3010

== ENCOUNTER → 2019-11-25 | Outpatient (CLI) | payer OTHER ==
[~2019-11-25] MED LIST changes: -ACETAMINOPHEN 650 MG SUPP PR ONE; -ASPI81TA85 PO; +ASPI81TA86 PO; +ISOVUE-300 61% 50ML VIAL As Ordered ONE; -LR 1,000 ML IV ONE; +PROHANCE 279.3MG/ML 5ML VIAL As Ordered ONE
--- NOTE | 2019-11-25 11:58 | REP ---
MRI ARTHROGRAM LEFT SHOULDER: TECHNIQUE: Axial T2 fat sat, coronal oblique T1, T2 fat sat, post arthrogram axial T1 fat sat, proton density, coronal oblique T1 fat sat, T2 sat, sagittal oblique T2 fat sat, ABER T1 fat sat. Moderate tendinopathy is noted of the supraspinatus tendon with a high grade partial tear of the bursal surface. This does not appear to extend through the entire thickness of the tendon. There is no other evidence of rotator cuff tendon. There are minor hypertrophic degenerative changes of the acromioclavicular joint with a type 2 acromion. Biceps tendon is within the bicipital groove without significant tenosynovitis. There is no Hill-Sachs deformity. Deltoid muscle demonstrates no abnormal signal. Biceps labral complex appears intact. I cannot see evidence of a labral tear. Lobulated well-defined oval lesion in the humeral head has a maximum diameter of 1 cm and may represent a small enchondroma. Tiny subcortical cystic changes are seen in the superolateral humeral head. Mild to moderate fluid is noted in the subacromial subdeltoid bursae. IMPRESSION: High-grade partial tear supraspinatus tendon involving the bursal surface. This does not appear to extend through the entire thickness of the tendon. No other evidence of rotator cuff tendon. No evidence of a labral tear. Oval lobulated bone lesion centrally in the humeral head appears benign and may represent an enchondroma. Mild to moderate fluid subacromial, subdeltoid bursae. Electronically Signed by Ben Gallego MD 11/26/2019 10:54 P
--- NOTE | 2019-11-26 12:32 | REP ---
Reason For Exam/Comment: Left shoulder pain Procedure: Left shoulder MRI arthrogram The procedure was performed by STEFANI Lantigua, under the direct supervision of Dr. Gallego. The benefits and risks including but not limited to pain, infection, bleeding and anaphylaxis were explained to the patient and informed consent was obtained both verbally and written. Directly prior to the start of the procedure, a formal timeout was completed in the procedure room. Technique: The left glenohumeral joint space was localized using fluoroscopic guidance. The skin was prepped and draped in the usual sterile fashion. 4 mL of 1% lidocaine 10 mg/ml was used as a local anesthetic. Using fluoroscopic guidance a 22-gauge spinal needle was inserted and advanced to the left glenohumeral joint space . 1 mL of Isovue 300 was injected to verify needle placement. 12 mL of a solution containing 20 ml of sterile saline and a 0.15 ml of ProHance was injected into the joint. The needle was removed and the patient was taken MRI for post procedural imaging. The patient tolerated the procedure well and there were no immediate complications. 0.1 minutes of fluoroscopy time was utilized for this procedure. Some fluoroscopic images are performed with last image hold technology. These images require no additional radiation. Reviewed by STEFANI Alvarez 11/25/2019 08:37 A Electronically Signed by Ben Gallego MD 11/26/2019 12:24 P
== END ==
LOC: M RADPRO 06:31
PROVIDERS: ATTEND Nurse Practitioner Primary Care
DX: R93.7 Abnormal findings on diagnostic imaging of other parts of musculoskeletal system (principal); M25.512 Pain in left shoulder; M25.412 Effusion, left shoulder
CPT/HCPCS: 23350; 73223; 77002; A9576; Q9967

== ENCOUNTER → 2021-02-05 | Outpatient (CLI) | payer OTHER ==
[~2021-02-05] MED LIST changes: +ASPI-569 PO; -ASPI81TAEC PO; -ISOVUE-300 61% 50ML VIAL As Ordered ONE; -PROHANCE 279.3MG/ML 5ML VIAL As Ordered ONE
--- NOTE | 2021-02-05 09:37 | REP ---
INDICATION: GRAHAM SCR MAMMO/DENSE BREAST. COMPARISON: Multiple prior screening examinations, the most recent, 09/03/2018 TECHNIQUE: Digital screening (2D) mammography was performed bilaterally in the CC and MLO projections. Additionally, breast tomosynthesis (3D mammography) was performed bilaterally in the CC and MLO projections. FINDINGS: Patient is a 46-year-old with a family history of breast cancer in 2 maternal aunts and 1 paternal aunt, and endometrial cancer in a maternal aunt. The Volpara volumetric breast density pattern is D, extremely dense, which decreases the sensitivity of mammography. In the middle 3rd of the left breast, directly deep to and lateral to the nipple at the 3 o'clock position there has been interval increase in number of a group of indeterminate calcifications. Additionally, there is questionable architectural distortion associated with the calcifications. The right breast has a stable appearance. . IMPRESSION: BIRADS/ACR : Category 0: Incomplete, need additional imaging evaluation. This patient's Tyrer-Cuzick lifetime breast cancer risk assessment score is 16.1%. This mammogram was interpreted with the aid of an FDA-approved computer-aided detection system. The patient states she had a clinical breast exam in December 2020. The patient letter being requested is M0. RECOMMENDATION: 2D and 3D focal compression magnification views of the left breast in the CC, MLO and true lateral orientations. <Electronically signed by Oscar Christy > 02/05/21 0927
--- NOTE | 2021-02-05 12:43 | REP ---
INDICATION: Dense breasts COMPARISON: Bilateral screening mammogram, same day. Left breast ultrasound, 08/21/2007. TECHNIQUE: 2D ultrasound whole breast imaging of both breast was performed. FINDINGS: There are no cystic or solid masses in either breast. IMPRESSION: Normal bilateral breast ultrasound. BI-RADS category 1: Negative. <Electronically signed by Oscar Christy > 02/05/21 [id number]
== END ==
LOC: M WHC 08:32
PROVIDERS: ATTEND Nurse Practitioner Family
DX: Z12.31 Encounter for screening mammogram for malignant neoplasm of breast (principal); N60.39 Fibrosclerosis of unspecified breast

== ENCOUNTER → 2021-02-18 | Outpatient (CLI) | payer OTHER ==
--- NOTE | 2021-02-18 15:15 | REP ---
INDICATION: LEFT BREAST ADD VIEWS. Screening mammography February 05, 2021 BI-RADS category 0 regarding calcifications. COMPARISON: 02/05/2021. September 03, 2018, and July 16, 2015 mammography is also reviewed. TECHNIQUE: Magnified focal spot-compression CC and MLO views are obtained. A true mediolateral view is obtained with and without magnification. This mammogram was interpreted with the aid of an FDA-approved computer-aided detection system. FINDINGS: Breast parenchyma remains extremely dense in a pattern which may inhibit the sensitivity mammography. No architectural distortion or mass lesion is seen. There is a segmental grouping of punctate microcalcifications visible in the lateral aspect of the left breast at approximately the 3 o'clock position which merit some suspicion. There also some benign milk of calcium calcifications visible on horizontal beam mediolateral view inferior to these. No other finding. The Volpara volumetric breast density pattern is D. IMPRESSION: BIRADS/ACR category 4 suspicious left breast mammographic findings. This patient's Tyrer-Cuzick lifetime breast cancer risk assessment score is 16.1%. RECOMMENDATION: Stereotactic needle biopsy for microcalcifications left lateral breast. Marker clip placement and post clip placement mammography indicated as well. The patient letter being requested is M4. <Electronically signed by Jaun Lee > 02/18/21 1636
== END ==
LOC: M WHC 14:25
PROVIDERS: ATTEND Nurse Practitioner Family
DX: R92.2 Inconclusive mammogram (principal); Z97.8 Presence of other specified devices

== ENCOUNTER → 2021-03-16 | Outpatient (CLI) | payer OTHER ==
[2021-03-16 10:26] VITALS: BP 116/76
--- NOTE | 2021-03-16 10:30 | REP ---
INDICATION: STEREO BX ABNORMAL LEFT MAMMOGRAM WITH POST CLIP MAMMO. COMPARISON: 02/05/2021, 02/18/2021. TECHNIQUE: MLO, mL and CC views left breast performed following stereotactic biopsy of 2 areas of microcalcifications in the left breast. FINDINGS: Prior diagnostic mammogram 02/18/2021 demonstrated scattered tiny calcifications. Some represented milk of calcium but others are indeterminate in the mediolateral projection. Two areas of these indeterminate calcifications are targeted today for stereotactic biopsy. The biopsies are performed in the lateral to medial projection. There is appropriate biopsy clip placement at the 2 sites biopsied. IMPRESSION: Deployment of biopsy clips at 2 locations, at the sites of indeterminate calcifications which were biopsied today stereotactically. RECOMMENDATION: Clinical follow-up. <Electronically signed by Ben Gallego > 03/16/21 1022
--- NOTE | 2021-03-16 10:34 | REP ---
INDICATION: STEREO BX ABNORMAL LEFT MAMMOGRAM WITH POST CLIP MAMMO. COMPARISON: 02/05/2021, 02/18/2021. TECHNIQUE: Two specimen radiographs are performed. FINDINGS: Stereotactic biopsies performed at 2 locations in the left breast for indeterminate tiny calcifications identified on the diagnostic mammogram of 02/18/2021. IMPRESSION: Microcalcifications are seen in each set of specimens. RECOMMENDATION: Clinical follow-up. <Electronically signed by Ben Gallego > 03/16/21 [id number]
--- NOTE | 2021-03-17 17:34 | REP ---
INDICATION: STEREO BX ABNORMAL LEFT MAMMOGRAM WITH POST CLIP MAMMO. COMPARISON: None. TECHNIQUE: This procedure is performed by STEFANI Luque, under the direct supervision of Dr. Gallego. The risks and benefits of the procedure were explained to the patient and informed consent was obtained both verbally and written. Directly prior to the start of the procedure, a formal timeout was done in the procedure room. The lateral medial approach was utilized on the prone table. The left breast calcifications were localized using mammographic guidance. The skin was prepped and draped in a sterile fashion. Twelve ml of buffered lidocaine 1% lidocaine 10 mg/ml was used as a local anesthetic. Directly prior to the start of the procedure, a formal timeout was done in the procedure room. The lateral medial approach was utilized on the prone table. The left breast calcifications posterior were localized using mammographic guidance. The skin was prepped and draped in a sterile fashion. Twenty ml of buffered lidocaine 1% lidocaine 10 mg/ml was used as a local anesthetic. FINDINGS: A 10 gauge mammotome biopsy device was inserted and advanced into the breast lesion and 6 core biopsy samples were obtained. A marker clip style 3 was placed at the biopsy site. A 10 gauge mammotome biopsy device was inserted and advanced into the breast lesion and 6 core biopsy samples were obtained. A marker clip style 1 was placed at the biopsy site. The patient tolerated the procedure well and there were no immediate complications. After the appropriate amount of monitored convalescence the patient was discharged from the department. IMPRESSION: Technically successful 2 site left breast calcification biopsies. <Electronically signed by Liliana Mayorga > 03/16/21 1415 <Electronically signed by Ben Gallego > 03/17/21 [id number]
== END ==
LOC: M WHCPRO 07:09
PROVIDERS: ATTEND Nurse Practitioner Family
DX: R92.8 Other abnormal and inconclusive findings on diagnostic imaging of breast (principal)

== ENCOUNTER → 2021-06-07 | Outpatient (CLI) | payer OTHER ==
[~2021-06-07] MED LIST changes: +OMEP-173 PO; -OMEP-218 PO; +PROHANCE 279.3MG/ML 15ML VIAL As Ordered ONE
== END ==
LOC: M RAD 12:29
PROVIDERS: ATTEND Surgery
DX: R92.8 Other abnormal and inconclusive findings on diagnostic imaging of breast (principal); Z91.89 Other specified personal risk factors, not elsewhere classified; R92.2 Inconclusive mammogram
CPT/HCPCS: A9576; C8908

== ENCOUNTER 2021-06-28 14:35 | Emergency (ER) | payer OTHER ==
[~2021-06-28] VITALS: Ht 167.6 cm; Wt 65.9 kg
[2021-06-28 15:38] LABS: BASO % 0.4 % (0.0-1.0); EOS % 0.3 % (0.0-3.0); HEMATOCRIT 42.4 % (36.0-47.0); LYMPH # 1.9 10^3/uL (1.5-5.0); LYMPH % 25.4 % (24.0-44.0); MEAN CORPUSCULAR HEMOGLOBIN 29.5 pg (27.0-33.0); MEAN CORPUSCULAR VOLUME 89.5 fl (80.0-96.0); MONO # 0.6 10^3/uL (0.0-0.8); MONO % 8.2 % (2.0-8.0); NEUTROPHILS # 4.8 10^3/uL (1.5-8.5); NEUTROPHILS % 65.4 % (36.0-66.0); PLATELET COUNT, AUTOMATED 208 10^3/uL (150-450); RED BLOOD COUNT 4.74 10^6/uL (4.00-5.40); WHITE BLOOD COUNT 7.4 10^3/uL (4.0-10.0)
[2021-06-28] MEDS ORDERED: ISOVUE-370 76% 100ML VIAL As Ordered ONE (15:43)
[2021-06-28 16:08] LABS: CK-MB VALUE MASS < 1.0 NG/ML (<3.6); CPK CREATINE PHOSPHOKINASE 64 U/L (26-192); MB/CK RELATIVE INDEX 1.56 (< OR =4)
[2021-06-28 16:22] LABS: RSV AMPLIFICATION NEGATIVE (NEGATIVE)
[2021-06-28 16:27] LABS: ALBUMIN 4.1 GM/DL (3.2-5.2); ALT/SGPT 14 U/L (12-78); BILIRUBIN,DIRECT < 0.1 MG/DL (0.0-0.2); BILIRUBIN,TOTAL 0.2 MG/DL (0.2-1.0); FREE T4 0.82 NG/DL (0.76-1.46); LIPASE 98 U/L (73-393); NT-PRO BNP 58 PG/ML (<125); TOTAL PROTEIN 7.3 GM/DL (6.4-8.2)
[2021-06-28 18:21] LABS: CK-MB VALUE MASS < 1.0 NG/ML (<3.6); CPK CREATINE PHOSPHOKINASE 60 U/L (26-192); MB/CK RELATIVE INDEX 1.67 (< OR =4)
[2021-06-28 18:46] VITALS: BP 123/82
== END 2021-06-28 19:02 | disposition home or self-care (01) ==
LOC: M ED 14:35
DX: R07.9 Chest pain, unspecified (principal); Z86.73 Personal history of transient ischemic attack (TIA), and cerebral infarction without residual deficits; R00.1 Bradycardia, unspecified; K21.9 Gastro-esophageal reflux disease without esophagitis; F42.9 Obsessive-compulsive disorder, unspecified; F17.200 Nicotine dependence, unspecified, uncomplicated; R92.8 Other abnormal and inconclusive findings on diagnostic imaging of breast; Z88.6 Allergy status to analgesic agent; Z79.899 Other long term (current) drug therapy; Z79.82 Long term (current) use of aspirin
CPT/HCPCS: 36415; 71045; 71275; 76642; 80047; 80076; 82550; 82553; 83690; 83880; 84439; 84443; 84484; 85025; 87631; 93005; 93041; 94760; 99285; Q9967

== ENCOUNTER → 2021-06-28 | Outpatient (CLI) | payer OTHER ==
[~2021-06-28] MED LIST changes: -PROHANCE 279.3MG/ML 15ML VIAL As Ordered ONE
== END ==
LOC: M RAD 12:05
PROVIDERS: ATTEND Surgery
DX: R92.8 Other abnormal and inconclusive findings on diagnostic imaging of breast (principal)

== ENCOUNTER → 2021-12-01 | Outpatient (CLI) | payer OTHER ==
[~2021-12-01] MED LIST changes: -ZONI100C17; -ZONI100C17 PO; +ZONI100C67; +ZONI100C67 PO
== END ==
LOC: M WHC 12:54
PROVIDERS: ATTEND Internal Medicine Hematology & Oncology
DX: M85.89 Other specified disorders of bone density and structure, multiple sites (principal); Z91.89 Other specified personal risk factors, not elsewhere classified; C50.912 Malignant neoplasm of unspecified site of left female breast; Z17.0 Estrogen receptor positive status [ER+]